=== PATIENT | male | born 1955 | race Caucasian/White ===

== ENCOUNTER → 2021-03-02 | Outpatient (CLI) | payer MEDICARE | LOC: ECHO 09:09 → NM 10:00 | DX: R00.2 Palpitations (principal); R00.1 Bradycardia, unspecified; R06.02 Shortness of breath; R53.1 Weakness; R53.83 Other fatigue | CPT/HCPCS: ECHO; 78452; 93017; 93306; A9502; J2785 ==

== ENCOUNTER 2021-05-16 07:56 | Outpatient (CLI) | payer MEDICARE ==
[~2021-05-16] VITALS: Ht 170.2 cm; Wt 99.8 kg
[2021-05-16 09:03] LABS: HEMOGLOBIN 14.7 gm/dl (14.0-17.5); RED BLOOD COUNT 4.85 M/UL (4.20-5.50); WHITE BLOOD COUNT 8.9 K/UL (4.5-11.0)
[2021-05-16] MEDS ORDERED: HYDROCHLOROTHIA25 MG PO (09:26)
[2021-05-16] MEDS ORDERED: ENALAPRIL MALEA20 MG PO (09:26)
[2021-05-16] MEDS ORDERED: AMLODIPINE BESYL5 MG PO (09:27)
[2021-05-16] MEDS ORDERED: CLINORIL 150 M150 MG PO (09:27)
[2021-05-16] MEDS ORDERED: ASPIRIN EC81 MG PO (09:28)
[2021-05-16] MEDS ORDERED: DESYREL 50 MG T50 MG PO (09:28)
[2021-05-16] MEDS ORDERED: FARXIGA10 MG PO (09:29)
[2021-05-16] MEDS ORDERED: FAMOTIDINE20 MG PO (09:29)
[2021-05-16] MEDS ORDERED: GLUCOPHAGE XR500 M1 PO (09:30)
[2021-05-16] MEDS ORDERED: JANUVIA100 MG PO (09:40)
[2021-05-16] MEDS ORDERED: LEVOTHYROXINE50 MC1 PO (09:40)
[2021-05-16] MEDS ORDERED: OMEGA 3 FISH O1 EACH PO (09:41)
[2021-05-16] MEDS ORDERED: SIMVASTATIN10 MG PO (09:41)
[2021-05-16] MEDS ORDERED: VITAMIN D31250 MCG PO (09:42)
[2021-05-16] MEDS ORDERED: FOLIC ACID 1 MG1 MG PO (09:47)
[2021-05-16] MEDS ORDERED: MAG-OX 400 TAB400 MG PO (09:48)
[2021-05-16] MEDS ORDERED: VITAMIN B-121000 MCG PO (09:48)
[2021-05-16] MEDS ORDERED: LORATADINE10 MG PO (09:48)
[2021-05-16] MEDS ORDERED: LEVOFLOXACIN500 MG PO (13:13)
[2021-05-16] MEDS ORDERED: HYDROCODON-ACE1 EAC4 PO (13:13)
--- NOTE | 2021-05-17 09:55 | NUR ---
GIVEN [employer]EM[employer]ER BOOKLET
== END 2021-05-17 10:43 | disposition home or self-care (01) ==
LOC: CATH 07:56 → MED SURG 4 13:45 → CATH 05-17 10:43
PROVIDERS: Internal Medicine Cardiovascular Disease
DX: I49.5 Sick sinus syndrome (principal); I45.89 Other specified conduction disorders; I10 Essential (primary) hypertension; Z20.822 Contact with and (suspected) exposure to COVID-19; E10.9 Type 1 diabetes mellitus without complications; E03.9 Hypothyroidism, unspecified; Z87.891 Personal history of nicotine dependence
CPT/HCPCS: 33208; 36415; 71045; 80048; 82962; 85025; 93005; 99152; 99153; C1898; C2621; J1644; J2250; J3010; J3370; J7040; J7050; J7070; Q9965; U0002

== ENCOUNTER → 2022-01-02 | Outpatient (CLI) | payer MEDICARE, OTHER ==
[~2022-01-02] MED LIST: AMLODIPINE BESYL5 MG PO; ASPIRIN EC81 MG PO; CLINORIL 150 M150 MG PO; DESYREL 50 MG T50 MG PO; ENALAPRIL MALEA20 MG PO; FAMOTIDINE20 MG PO; FARXIGA10 MG PO; FOLIC ACID 1 MG1 MG PO; GLUCOPHAGE XR500 M1 PO; HYDROCHLOROTHIA25 MG PO; HYDROCODON-ACE1 EAC4 PO; JANUVIA100 MG PO; LEVOFLOXACIN500 MG PO; LEVOTHYROXINE50 MC1 PO; LORATADINE10 MG PO; MAG-OX 400 TAB400 MG PO; OMEGA 3 FISH O1 EACH PO; SIMVASTATIN10 MG PO; VITAMIN B-121000 MCG PO; VITAMIN D31250 MCG PO
== END ==
LOC: RAD 07:27
DX: M54.2 Cervicalgia (principal); M48.061 Spinal stenosis, lumbar region without neurogenic claudication; M47.812 Spondylosis without myelopathy or radiculopathy, cervical region
CPT/HCPCS: 72131

== ENCOUNTER → 2022-01-31 | Outpatient (CLI) | payer MEDICARE, OTHER | LOC: MRI 12:08 | DX: N18.1 Chronic kidney disease, stage 1 (principal); G93.89 Other specified disorders of brain | CPT/HCPCS: 36415; 70553; 82565; 84520; A9577 ==